=== PATIENT | female | born 1995 | race Two or more races ===

== ENCOUNTER 2024-11-05 04:55 | Emergency (ER) | payer OTHER ==
[~2024-11-05] VITALS: Ht 167.6 cm; Wt 87.2 kg
[2024-11-05 05:06] VITALS: O2SAT 100
[2024-11-05] MEDS: MAGNESIUM/ALUMINUM HYDROXIDE/SIMETHICONE 30ML UDC PO ONE (05:42)
[2024-11-05] MEDS: FAMOTIDINE 20MG TABLET PO ONE (05:42)
[2024-11-05] MEDS: KETOROLAC 30MG/ML VIAL IM ONE (05:42)
[2024-11-05 05:47] LABS: CLARITY URINE CLOUDY (CLEAR); COLOR URINE DARK YELLOW (YELLOW); GLUCOSE URINE NEGATIVE (NEGATIVE); KETONES URINE TRACE (NEGATIVE); LEUKOCYTE ESTERASE URINE 1+ (NEGATIVE); NITRITE URINE NEGATIVE (NEGATIVE); OCCULT BLOOD URINE NEGATIVE (NEGATIVE); PH URINE 5.5 (4.5-8.0); PROTEIN URINE NEGATIVE (NEGATIVE); SPECIFIC GRAVITY URINE 1.031 (1.005-1.030); UROBILINOGEN URINE 1.0 E.U./dL (0.2-1.0)
[2024-11-05 05:50] LABS: CREATININE 1.0 mg/dL (0.6-1.0)
[2024-11-05 05:51] LABS: UREA NITROGEN BLOOD 11 mg/dL (9-23)
[2024-11-05 05:52] LABS: ASPARTATE AMINOTRANSFERASE 626 IU/L (<34)
[2024-11-05 05:53] LABS: BILIRUBIN DIRECT 1.7 mg/dL (<=3.0); BILIRUBIN TOTAL 2.7 mg/dL (0.1-1.0); PROTEIN TOTAL 7.6 g/dL (6.0-8.3)
[2024-11-05 06:12] LABS: BASOPHILS % 0.8 % (0.0-2.0); EOSINOPHILS % 4.8 % (0.0-5.0); HEMATOCRIT. 39.8 % (36.0-48.0); HEMOGLOBIN. 13.5 g/dL (12.0-16.0); LYMPHOCYTES % 24.2 % (20.0-50.0); MEAN PLATELET VOLUME 10.6 fl (7.4-10.4); MONOCYTES % 9.7 % (2.0-8.0); NEUTROPHILS % 60.5 % (40.0-76.0); PLATELET 168 x1000/uL (130-400); RED BLOOD CELL COUNT 4.48 mill/uL (4.2-5.4); RED CELL DISTRIBUTION WIDTH 12.6 % (11.6-14.6)
[2024-11-05] MEDS: MORPHINE SULFATE 4 MG/ML INJ (FOR IV/IM USE) IV ONE ×2 (07:52→11:02)
[2024-11-05 08:18] LABS: HCG SCREEN NEGATIVE
[2024-11-05 08:34] LABS: CALCIUM OXALATE CRYSTALS URINE 3+ /lpf; SQUAMOUS EPITHELIAL CELL URINE 2+ /lpf (RARE/1+)
[2024-11-05 08:36] LABS: BACTERIA URINE 1+; YEAST URINE NONE SEEN
[2024-11-05 09:50] VITALS: TEMP 36.6; O2SAT 100
[2024-11-05] MEDS: ONDANSETRON HCL 4MG/2ML INJ IV ONE (10:17)
[2024-11-05 11:02] VITALS: BP 135/84; PULSE 77; RESP 16
== END 2024-11-05 11:51 | disposition left against medical advice (07) ==
LOC: ER 04:55 → EDBEDREQTM 10:53 → EDBEDREQSVC 10:53 → EDBEDREQ 10:53 → ER 11:51 → CMPBEDREQ 11:55
DX: K80.20 Calculus of gallbladder without cholecystitis without obstruction (principal)
CPT/HCPCS: 80076; 80048; 81003; 81025; 84703; 83690; 85025; 36415; 76705; 74181; 96372; 96374; 96375; 96376; 99291; J1885; J2405; J2270; Z7610